=== PATIENT | male | born 1965 | race Caucasian/White ===

== ENCOUNTER 2016-12-05 22:37 | Observation (INO) | payer OTHER ==
[2016-12-05 22:40] VITALS: BP 127/93; PULSE 88; RESP 16; TEMP 97.7; O2SAT 96
--- NOTE | 2016-12-05 23:56 | RADRPT ---
EXAM DATE/TIME: 12/05/2016 23:25 [facility] COMPARISON: No previous studies available for comparison. INDICATIONS : Cough. MEDICAL HISTORY : None. SURGICAL HISTORY : None. ENCOUNTER: Initial ACUITY: 2 weeks PAIN SCORE: 0/10 LOCATION: Bilateral chest FINDINGS: A single view of the chest demonstrates the lungs to be symmetrically aerated without evidence of mas s, infiltrate or effusion. The cardiomediastinal contours are unremarkable. Osseous structures are intact. CONCLUSION: No acute disease. Alireza Campbell Jr., MD on December 05, 2016 at 23:54 Board Certified Radiologist. This report was verified electronically.
[2016-12-06] VITALS (10 sets, daily range): BP systolic 118–130; BP diastolic 59–84; PULSE 76–95; RESP 18–22; TEMP 97.6–98.7; O2SAT 93–96
[2016-12-06 00:03] LABS: AUTOMATED NEUTROPHIL # 5.5 TH/MM3 (1.8-7.7); BASOPHIL # 0.2 TH/MM3 (0-0.2); BASOPHIL % 1.3 % (0.0-2.0); EOSINOPHIL # 0.7 TH/MM3 (0-0.4); EOSINOPHIL % 5.6 % (0.0-4.0); HEMATOCRIT 41.8 % (39.0-51.0); LYMPH % 42.4 % (9.0-44.0); LYMPHOCYTE # 5.4 TH/MM3 (1.0-4.8); MEAN CELL VOLUME 84.4 FL (80.0-100.0); MEAN CORPUSCULAR HEMOGLOBIN 29.7 PG (27.0-34.0); MEAN CORPUSCULAR HGB CONC 35.2 % (32.0-36.0); MONO % 7.9 % (0.0-8.0); NEUT % 42.8 % (16.0-70.0); PLATELET COUNT 277 TH/MM3 (150-450); RED BLOOD COUNT 4.95 MIL/MM3 (4.50-5.90); RED CELL DISTRIBUTION WIDTH 13.2 % (11.6-17.2); WHITE BLOOD COUNT 12.7 TH/MM3 (4.0-11.0)
[2016-12-06 00:09] LABS: HEMO FLAGS AUTO DIFF
[2016-12-06] MEDS ORDERED: methylPREDNISolone SOD SUCC 125 MG/2 ML VIAL IVP ONE (00:15)
[2016-12-06] MEDS: RESP: ALBUTEROL 2.5 MG/IPRATROPIUM 0.5 MG NEB (SCH) INH ×2 (00:15→00:30)
[2016-12-06] MEDS ORDERED: LEVOFLOXACIN 750 MG PREMIX INJ 150 ML IV ONE (00:15)
[2016-12-06] MEDS ORDERED: SODIUM CHLOR 0.9% 1000 ML INJ 1,000 ML IV ONE (00:15)
[2016-12-06 00:21] LABS: APTT (PATIENT) 26.2 SEC (24.3-30.1); PROTHROMBIN TIME - PATIENT 10.9 SEC (9.8-11.6)
[2016-12-06 00:28] LABS: ALT (GPT) 25 U/L (12-78); ANION GAP 8 MEQ/L (5-15); AST (GOT) 14 U/L (15-37); BICARBONATE 29.3 MEQ/L (21.0-32.0); BLOOD UREA NITROGEN 6 MG/DL (7-18); CHLORIDE 106 MEQ/L (98-107); GLOMERULAR FILTRATION RATE 105 ML/MIN (>89); MAGNESIUM 2.5 MG/DL (1.5-2.5); POTASSIUM 3.6 MEQ/L (3.5-5.1); SODIUM (NA) 143 MEQ/L (136-145)
[2016-12-06 00:31] LABS: ALKALINE PHOSPHATASE 93 U/L (45-117); CREATINE KINASE 145 U/L (39-308); TOTAL BILIRUBIN ADULT 0.4 MG/DL (0.2-1.0)
[2016-12-06 00:44] LABS: CKMB 0.9 NG/ML (0.5-3.6)
[2016-12-06 02:04] LABS: BANDS 3 % (0-6); BASOPHILS 1 % (0-2); EOSINOPHILS 8 % (0-4); NEUTROPHIL # MANUAL DIFF 5.5 TH/MM3 (1.8-7.7); PLATELET ESTIMATE SMEAR NORMAL (NORMAL); PLATELET MORPHOLOGY NORMAL (NORMAL); POLYS (SEG NEUTROPHILS) 40 % (16-70); SCAN/DIFF FINAL DIFF MANUAL; WBC DIFF SAMPLE 100
--- NOTE | 2016-12-06 02:13 | PD ---
HPI Chief Complaint: Syncope/Near-Syncope Time Seen by Provider: 23:17 Travel History International Travel<30 days: No Contact w/Intl Traveler<30days: No Traveled to known affect area: No History of Present Illness HPI The patient is a 51 year old male who presents to the [facility] emergency department with a history of syncopal event 3 today. He reports that it occurs when he is coughing back to back. He reports that over the last month he has had an intractable cough after having flulike symptoms that began on November 13. The patient reports that the cough is occasionally productive of clear to green sputum. He denies ever having respiratory problems in the past. He denies smoking. He reports that he has chest tightness with the coughing. He also reports having a burning in his throat. He reports that the congestion that he had previously and has had has resolved. Review of systems, the patient reports that intermittently his stool has been loose. He denies having any nausea or vomiting. The patient denies having any known fevers, neck pain, abdominal pain, urinary symptoms, or other neurologic symptoms. [facility] Past Medical History Narrative Medical The patient's past medical history is significant for none. Medical History: Denies Significant Hx Diminished Hearing: No Tetanus Vaccination: Unknown Influenza Vaccination: No Past Surgical History Narrative Surgical The patient's past surgical history is reportedly none. Surgical History: No Previous Surgery Social History Alcohol Use: Yes (OCC) Tobacco Use: No Substance Use: No Allergies-Medications (Allergen,Severity, Reaction): Coded Allergies: No Known Allergies (Unverified , 12/05/16) Reported Meds & Prescriptions Reported Meds & Active Scripts Active No Active Prescriptions or Reported Medications Review of Systems Except as stated in HPI: all other systems reviewed are Neg General / Constitutional: No: Fever Eyes: No: Visual changes HENT: No: Headaches Cardiovascular: Positive: Chest Pain or Discomfort (chest tightness), Syncope, Dyspnea on exertion Respiratory: Positive: Cough, No: Shortness of Breath Gastrointestinal: No: Nausea, Vomiting, Diarrhea, Abdominal Pain Genitourinary: No: Dysuria Musculoskeletal: No: Pain Skin: No Rash Neurologic: No: Weakness Psychiatric: No: Depression Endocrine: No: Polydipsia Hematologic/Lymphatic: No: Easy Bruising Physical Exam Narrative General: The patient is a well-developed well-nourished male in no acute distress. Head and Neck exam: Head is normocephalic atraumatic. Eyes: EOMI, pupils are equal round and reactive to light. Nose: Midline septum with pink mucous membranes Mouth: Dentition unremarkable. Moist mucus membranes. Posterior oropharynx is erythematous with tonsillar hypertrophy, no exudates. Uvula midline. Airway patent. Neck: No palpable lymphadenopathy. No nuchal rigidity. No thyromegaly. Cardiovascular: Regular rate and rhythm without murmurs, gallops, or rubs. Lungs: Clear to auscultation bilaterally. No wheezes, rhonchi, or rales. The patient has a frequent dry cough on examination. Abdomen: Soft, without tenderness to palpation in all 4 quadrants of the abdomen. No guarding, rebound, or rigidity. Normal bowel sounds are audible. No tenderness on palpation of McBurney's point. Negative Friedman's sign. Extremities: No clubbing, cyanosis, or edema. 2+ pulses in all 4 extremities. No calf tenderness on palpation. Back: No spinous process tenderness to palpation. No costovertebral angle tenderness to palpation. Neurologic Exam: Cranial nerves 2-12 were intact on exam. Strength is 5/5 in all 4 extremities. No sensory deficits noted. Skin Exam: No rash noted. Intact skin that is warm and dry. Data Data Last Documented VS Vital Signs Date Time Temp Pulse Resp B/P Pulse Ox O2 Delivery O2 Flow Rate FiO2 12/05/16 23:05 16 12/05/16 22:40 97.7 88 127/93 96 Orders Electrocardiogram (12/05/16 23:20) Complete Blood Count With Diff (12/05/16 23:20) Comprehensive Metabolic Panel (12/05/16 23:20) Creatine Kinase (Cpk) (12/05/16 23:20) Ckmb (Isoenzyme) Profile (12/05/16 23:20) Troponin I (12/05/16 23:20) B-Type Natriuretic Peptide (12/05/16 23:20) Prothrombin Time / Inr (Pt) (12/05/16 23:20) Act Partial Throm Time (Ptt) (12/05/16 23:20) Blood Culture (12/05/16 23:20) D-Dimer (12/05/16 23:20) Magnesium (Mg) (12/05/16 23:20) Chest, Single Ap (12/05/16 23:20) Iv Access Insert/Monitor (12/05/16 23:20) Ecg Monitoring (12/05/16 23:20) Oximetry (12/05/16 23:20) Lactic Acid Sepsis Protocol (12/05/16 23:20) Methylprednisolone So Succ Inj (Solumedr (12/06/16 00:15) Albuterol-Ipratropium Neb (Duoneb Neb) (12/06/16 00:15) Levofloxacin 750 Mg Premix Inj (Levaquin (12/06/16 00:15) Sodium Chlor 0.9% 1000 Ml Inj (Ns 1000 M (12/06/16 00:15) CKMB (12/05/16 23:45) CKMB% (12/05/16 23:45) Ct Pulmonary Angiogram (12/06/16 01:24) Admit Order (Ed Use Only) (12/06/16 02:06) Labs Laboratory Tests Test 12/05/16 23:45 White Blood Count 12.7 TH/MM3 Red Blood Count 4.95 MIL/MM3 Hemoglobin 14.7 GM/DL Hematocrit 41.8 % Mean Corpuscular Volume 84.4 FL Mean Corpuscular Hemoglobin 29.7 PG Mean Corpuscular Hemoglobin 35.2 % Concent Red Cell Distribution Width 13.2 % Platelet Count 277 TH/MM3 Mean Platelet Volume 9.3 FL Neutrophils (%) (Auto) 42.8 % Lymphocytes (%) (Auto) 42.4 % Monocytes (%) (Auto) 7.9 % Eosinophils (%) (Auto) 5.6 % Basophils (%) (Auto) 1.3 % Neutrophils # (Auto) 5.5 TH/MM3 Lymphocytes # (Auto) 5.4 TH/MM3 Monocytes # (Auto) 1.0 TH/MM3 Eosinophils # (Auto) 0.7 TH/MM3 Basophils # (Auto) 0.2 TH/MM3 CBC Comment AUTO DIFF Differential Total Cells 100 Counted Neutrophils % (Manual) 40 % Band Neutrophils % 3 % Lymphocytes % 42 % Monocytes % 6 % Eosinophils % 8 % Basophils % 1 % Neutrophils # (Manual) 5.5 TH/MM3 Differential Comment FINAL DIFF MANUAL Platelet Estimate NORMAL Platelet Morphology Comment NORMAL Prothrombin Time 10.9 SEC Prothromb Time International 1.0 RATIO Ratio Activated Partial 26.2 SEC Thromboplast Time D-Dimer Quantitative (PE/DVT) 0.65 MG/L FEU Sodium Level 143 MEQ/L Potassium Level 3.6 MEQ/L Chloride Level 106 MEQ/L Carbon Dioxide Level 29.3 MEQ/L Anion Gap 8 MEQ/L Blood Urea Nitrogen 6 MG/DL Creatinine 0.78 MG/DL Estimat Glomerular Filtration 105 ML/MIN Rate Random Glucose 89 MG/DL Lactic Acid Level 1.0 mmol/L Calcium Level 8.6 MG/DL Magnesium Level 2.5 MG/DL Total Bilirubin 0.4 MG/DL Aspartate Amino Transf 14 U/L (AST/SGOT) Alanine Aminotransferase 25 U/L (ALT/SGPT) Alkaline Phosphatase 93 U/L Total Creatine Kinase 145 U/L Creatine Kinase MB 0.9 NG/ML Troponin I LESS THAN 0.02 NG/ML B-Type Natriuretic Peptide 11 PG/ML Total Protein 6.9 GM/DL Albumin 3.6 GM/DL MDM Medical Decision Making Medical Screen Exam Complete: Yes Emergency Medical Condition: Yes Medical Record Reviewed: Yes Differential Diagnosis Cough induced hypoxia, versus pulmonary embolism, versus pneumonia, versus acute coronary syndrome, versus cardiac arrhythmia Narrative Course During the course of the patients emergency department visit, the patients history, examination, and differential diagnosis were reviewed with the patient. The patient had IV access obtained and blood work sent for analysis. The patient was placed on a desk monitor with oximetry and blood pressure monitoring. An EKG was done on arrival. The patient's EKG shows a sinus rhythm heart rate of 71, nonspecific T-wave abnormalities, no acute ST segment elevation, T waves inverted in lead 3. The patient was provided a DuoNeb 1, Solu-Medrol 60 mg IV, Levaquin 750 IV times one for bronchitis. The patients laboratory studies were reviewed and remarkable for a white count of 12.7, hemoglobin 14.7, platelets 277 with 40 neutrophils, 3 bands, 42 lymphocytes, 8 eosinophils, CMP is unremarkable, CPK 145, troponin I less than 0.02, BNP is 11, lactic acid is 1, PT PTT unremarkable, d-dimer is 0.65, therefore a CTA to rule out PE was ordered. Radiology studies were reviewed and remarkable for a chest x-ray that shows no acute infiltrate. CTA to rule out PE reveals no evidence of pulmonary embolism , mild cardiomegaly. The patient will be admitted to the hospital for continued evaluation and treatment of syncope. The patients results were discussed with the patient, including the plan of care. I explained that further testing and/ or monitoring is indicated based on the patients history, examination, and/ or laboratory findings. Therefore, I recommended admission for additional evaluation. The patient expressed understanding and was agreeable with this plan. The patient was admitted to the hospital in stable condition and [facility] Physician Communication Physician Communication The patient's case is discussed with Dr. Santiago who did agree to admit the patient for further evaluation and treatment at this time Diagnosis Primary Impression: Syncope Qualified Code: R55 - Syncope, unspecified syncope type Additional Impression: Bronchitis Admitting Information Admitting Physician Requests: Observation Scripts No Active Prescriptions or Reported Meds Kathleen Foster MD Dec 06, 2016 02:13
[2016-12-06] MEDS ORDERED: SODIUM CHLORIDE 0.9% FLUSH 10 ML FLUSH IV FLUSH PRN (02:15)
[2016-12-06] MEDS ORDERED: NALOXONE HCL 0.4 MG/ML AMP IV PRN (02:15)
[2016-12-06] MEDS ORDERED: IOHEXOL 350 MG/ML 10 ML VIAL (for RAD DIAG) IV ONE (02:42)
--- NOTE | 2016-12-06 02:57 | RADRPT ---
EXAM DATE/TIME: 12/06/2016 02:39 [facility] COMPARISON: No previous studies available for comparison. INDICATIONS : Cough for three weeks, near syncopal episodes. Elevated D-Dimer. IV CONTRAST: 70 cc Omnipaque 350 (iohexol) IV RADIATION DOSE: 23.38 CTDIvol (mGy) MEDICAL HISTORY : None SURGICAL HISTORY : None. ENCOUNTER: Initial ACUITY: 3 weeks PAIN SCALE: 5/10 LOCATION: Left chest Patient was premedicated for underlying contrast media allergy. TECHNIQUE: Volumetric scanning of the chest was performed using a pulmonary embolism protocol MIP images were re constructed. Using automated exposure control and adjustment of the mA and/or kV according to patien t size, radiation dose was kept as low as reasonably achievable to obtain optimal diagnostic quality images. FINDINGS: Breathing motion artifact degrades the exam. PULMONARY ARTERIES: No filling defects are seen in the pulmonary arteries through the segmental level. LUNGS: There is no consolidation or pneumothorax . No concerning pulmonary nodule is visualized. PLEURAE: There is no pleural thickening or pleural effusion. MEDIASTINUM: Mild cardiomegaly. There is good visualization of the great vessels of the middle mediastinum. No ev idence of mediastinal or hilar adenopathy/mass. MUSCULOSKELETAL: Within normal limits for patient age. MISCELLANEOUS: The visualized upper abdominal organs demonstrate no acute abnormality. CONCLUSION: 1. No pulmonary emboli. 2. Mild cardiomegaly. Alireza Campbell Jr., MD on December 06, 2016 at 2:54 Board Certified Radiologist. This report was verified electronically.
[2016-12-06] MEDS: SODIUM CHLORIDE 0.9% FLUSH 10 ML FLUSH IV FLUSH SCH ×2 (09:00→21:07)
[2016-12-06 09:10] LABS: CREATINE KINASE 130 U/L (39-308)
--- NOTE | 2016-12-06 09:43 | HHI.HP ---
[facility] No Primary Care Physician Admission Diagnosis Syncope, bronchitis Diagnoses: Chief Complaint: cough, near syncope Travel History International Travel<30 Days: No Contact w/Intl Traveler <30 Da: No Traveled to Known Affected Are: No History of Present Illness 51-year-old male with no significant past medical history presents with a 3 week history of cough and 1 day history of near syncope. The patient states he' s had 3 weeks of "flu-like" symptoms. Then 2 weeks ago he developed intractable cough with occasional green mucus production. He's been feeling more fatigued and weak recently. Then yesterday he would get into a coughing fit, felt lightheaded and short of breath, then lower himself to the ground but did not lose consciousness. He did feel feverish 3 weeks ago when his flulike symptoms started, but denies any recent fevers or chills. Denies any chest pain, abdominal pain, nausea/vomiting. Since his arrival, CT-PA unremarkable, he was given IV Solumedrol, Duonebs, and Levaquin. He currently feels better, cough improving with minimal clear sputum, and no fevers/chills. Review of Systems Except as stated in HPI: all other systems reviewed are Neg Past Family Social History Past Medical History Denies any significant past medical history Past Surgical History Colonoscopy 2 years ago reportedly unremarkable Reported Medications Denies taking any medications on a regular basis Allergies: Coded Allergies: No Known Allergies (Unverified , 12/05/16) Active Ordered Medications Current Medications Medications (Trade) Dose Ordered Sig/Kacie Route Start Time Stop Time Status Last Admin (NS Flush) 2 ml UNSCH PRN IV FLUSH 12/06/16 02:15 (NS Flush) 2 ml BID IV FLUSH 12/06/16 09:00 (Narcan Inj) 0.4 mg UNSCH PRN IV 12/06/16 02:15 Family History Grandfather with heart disease Brother with heart disease, started in his 30s Father with lung cancer, smoker Mother with ovarian cancer Social History Denies tobacco use. Occasional social alcohol use Denies illicit drug use Physical Exam Vital Signs Vital Signs Date Time Temp Pulse Resp B/P Pulse Ox O2 Delivery O2 Flow Rate FiO2 12/06/16 07:06 97.6 87 18 122/70 94 12/06/16 04:51 92 12/06/16 04:20 98.0 90 20 129/74 95 12/06/16 03:23 90 20 118/74 96 Room Air 12/05/16 23:05 16 12/05/16 22:40 97.7 88 16 127/93 96 Physical Exam GENERAL: Well-developed, well-nourished middle aged male patient in NAD. SKIN: Warm and dry. HEAD: Atraumatic. Normocephalic. EYES: Pupils equal and round. No scleral icterus. No injection or drainage. ENT: No nasal bleeding or discharge. Mucous membranes pink and moist. NECK: Trachea midline. CARDIOVASCULAR: Regular rate and rhythm. No murmur appreciated. RESPIRATORY: No accessory muscle use. Decreased breath sounds at bilateral bases , otherwise clear to auscultation. Breath sounds equal bilaterally. GASTROINTESTINAL: Abdomen soft, non-tender, nondistended. Hepatic and splenic margins not palpable. MUSCULOSKELETAL: Extremities without clubbing, cyanosis, or edema. No obvious deformities. NEUROLOGICAL: Awake and alert. No obvious cranial nerve deficits. Motor grossly within normal limits. 5/5 muscle strength in the arms and legs. Normal speech. PSYCHIATRIC: Appropriate mood and affect; insight and judgment normal. Laboratory Laboratory Tests Test 12/05/16 12/06/16 23:45 05:50 White Blood Count 12.7 Red Blood Count 4.95 Hemoglobin 14.7 Hematocrit 41.8 Mean Corpuscular Volume 84.4 Mean Corpuscular Hemoglobin 29.7 Mean Corpuscular Hemoglobin 35.2 Concent Red Cell Distribution Width 13.2 Platelet Count 277 Mean Platelet Volume 9.3 Neutrophils (%) (Auto) 42.8 Lymphocytes (%) (Auto) 42.4 Monocytes (%) (Auto) 7.9 Eosinophils (%) (Auto) 5.6 Basophils (%) (Auto) 1.3 Neutrophils # (Auto) 5.5 Lymphocytes # (Auto) 5.4 Monocytes # (Auto) 1.0 Eosinophils # (Auto) 0.7 Basophils # (Auto) 0.2 CBC Comment AUTO DIFF Differential Total Cells 100 Counted Neutrophils % (Manual) 40 Band Neutrophils % 3 Lymphocytes % 42 Monocytes % 6 Eosinophils % 8 Basophils % 1 Neutrophils # (Manual) 5.5 Differential Comment FINAL DIFF MANUAL Platelet Estimate NORMAL Platelet Morphology Comment NORMAL Prothrombin Time 10.9 Prothromb Time International 1.0 Ratio Activated Partial 26.2 Thromboplast Time D-Dimer Quantitative (PE/DVT) 0.65 Sodium Level 143 Potassium Level 3.6 Chloride Level 106 Carbon Dioxide Level 29.3 Anion Gap 8 Blood Urea Nitrogen 6 Creatinine 0.78 Estimat Glomerular Filtration 105 Rate Random Glucose 89 Lactic Acid Level 1.0 Calcium Level 8.6 Magnesium Level 2.5 Total Bilirubin 0.4 Aspartate Amino Transf 14 (AST/SGOT) Alanine Aminotransferase 25 (ALT/SGPT) Alkaline Phosphatase 93 Total Creatine Kinase 145 130 Creatine Kinase MB 0.9 Troponin I LESS THAN 0.02 LESS THAN 0.02 B-Type Natriuretic Peptide 11 Total Protein 6.9 Albumin 3.6 Date/Time Procedure Status Source Growth 12/05/16 23:45 Aerobic Blood Culture Received Blood Peripheral Pending 12/05/16 23:45 Anaerobic Blood Culture Received Blood Peripheral Pending Result Diagram: 12/05/16 2345 12/05/[address] Angiography 12/06/16 0124 Signed Impressions: Service Date/Time: Tuesday, December 06, 2016 02:39 - CONCLUSION: 1. No pulmonary emboli. 2. Mild cardiomegaly. Alireza Campbell Jr., MD Chest X-Ray 12/05/16 4047 Signed Impressions: Service Date/Time: Monday, December 05, 2016 23:25 - CONCLUSION: No acute disease. Alireza Campbell Jr., MD Assessment and Plan Problem List: (1) Bronchitis ICD Code: J40 Status: Acute (2) Syncope ICD Code: R55 Status: Acute Assessment and Plan 51-year-old male with no significant past medical history presents with a 3 week history of cough and 1 day history of near syncope. Acute Bronchitis: symptoms [id number] after viral illness. Possible early pneumonia. CXR and CT-PA images reviewed, unremarkable, negative for PE. WBC 12.7K, afebrile. -Continue Prednisone 20mg bid, Levaquin 750mg daily, and Fluticasone nasal spray bid. -Duonebs prn. -Blood cultures with NGTD -Patient with hx of second hand smoke exposure, consider outpatient PFTs after discharge -likely discharge tomorrow am Near Syncope: likely secondary to intractable coughing. -Carotid U/S unremarkable -ACS ruled out with negative cardiac enzymes x3 -EKG reviewed by me, no ischemic changes -Check echocardiogram DVT Prophylaxis: teds/SCDs Written by Alesia Cary, acting as scribe for Dr. Espana on 12/06/16 at 09:43. All or portions of this note were transcribed by scribe CARINA Gregorio . I , Dr. Camron Espana personally performed the history, physical exam, and medical decision making; and confirmed the accuracy of the information in the transcribed note. Authenticated by Dr. Camron Espana on 12/07/16 at 00:01. Discussed Condition With Patient, RN Problem Qualifiers (1) Syncope: Qualified Code: R55 - Syncope, unspecified syncope type Alesia Cary PA-C Dec 06, 2016 09:43 Leonides Espana DO Dec 07, 2016 00:01
--- NOTE | 2016-12-06 09:52 | RADRPT ---
EXAM DATE/TIME: 12/06/2016 07:56 [facility] COMPARISON: No previous studies available for comparison. INDICATIONS : Syncope. MEDICAL HISTORY : Cough. Bronchitis. Syncope. SURGICAL HISTORY : None. ENCOUNTER: Initial ACUITY: 1 day PAIN SCORE: 2/10 LOCATION: Bilateral neck PEAK SYSTOLIC VELOCITIES (cm/sec): ICA/CCA RATIO: Right: 0.9 Left: 0.8 ICA: Right: 98 Left: 98 CCA: Right: 111 Left: 125 ECA: Right: 125 Left: 118 VERTEBRAL: Right: Not visualized. absent Left: 45 antegrade Elevated flow velocities and ICA/CCA ratios have been found to correlate with increased degrees of vessel stenosis, calculated as percentage of diameter relative to a normal segment of distal ICA/CCA FINDINGS: RIGHT CAROTID: No significant stenosis is visualized. The waveforms are within normal limits. LEFT CAROTID: No significant stenosis is visualized. The waveforms are within normal limits. VERTEBRAL ARTERIES: Right vertebral flow is not identified MISCELLANEOUS: None. CONCLUSION: No evidence of flow-limiting carotid stenosis. Zeeshan Sharif MD on December 06, 2016 at 9:48 Board Certified Radiologist. This report was verified electronically.
[2016-12-06] MEDS: predniSONE 10 MG TAB PO SCH ×2 (10:11→21:07)
--- NOTE | 2016-12-06 10:44 | EKG ---
Date Performed: 12/05/2016 Time Performed: 23:30:30 PTAGE: 51 years EKG: Sinus rhythm NONSPECIFIC T-WAVE ABNORMALITY BORDERLINE ECG NO PREVIOUS TRACING DOCTOR: Dara Chanel Interpretating Date/Time 12/06/2016 10:37:21
--- NOTE | 2016-12-06 10:45 | EKG ---
Date Performed: 12/06/2016 Time Performed: 06:08:16 PTAGE: 51 years EKG: Sinus rhythm NONSPECIFIC T-WAVE ABNORMALITY BORDERLINE ECG Compared to prior tracing no significant change PREVIOUS TRACING DOCTOR: Dara Chanel Interpretating Date/Time 12/06/2016 10:37:33
[2016-12-06] MEDS: guaiFENesin/CODEINE SYRUP 200 MG/20 MG/10 ML CUP PO PRN ×2 (10:52→21:10)
[2016-12-06] MEDS: FLUTICASONE PROPIONATE 50 MCG/ACT 16 GM NASAL SPRAY EACH NARE SCH (10:54)
[2016-12-06 12:50] LABS: CREATINE KINASE 132 U/L (39-308)
--- NOTE | 2016-12-06 16:30 | EC ---
Study Study Date:12/06/2016 STUDY CONCLUSIONS SUMMARY - Left ventricle: The cavity size was mildly dilated. Wall thickness was normal. Systolic function was normal. The estimated ejection fraction was in the range of 60% to 65%. Wall motion was normal; there were no regional wall motion abnormalities. - Tricuspid valve: Mild regurgitation. If LV function is below 40, please consider prescribing an ACEI or ARB or document rationale for non-use. PROCEDURE DATA STUDY STATUS: Elective. Procedure: Transthoracic echocardiography. Image quality was good. Scanning was performed from the parasternal, apical, and subcostal acoustic windows. Study completion: The patient tolerated the procedure well. Transthoracic echocardiography. M-mode, complete 2D, complete spectral Doppler, and color Doppler. Patient status: Inpatient. CARDIAC ANATOMY LEFT VENTRICLE: The cavity size was mildly dilated. Wall thickness was normal. Systolic function was normal. The estimated ejection fraction was in the range of 60% to 65%. Wall motion was normal; there were no regional wall motion abnormalities. AORTIC VALVE: Trileaflet; normal thickness leaflets. Doppler: Transvalvular velocity was within the normal range. There was no stenosis. No regurgitation. Mean gradient: 11mm Hg (S). Peak gradient: 21mm Hg (S). AORTA: Aortic root: The aortic root was normal in size. MITRAL VALVE: Structurally normal valve. Doppler: Transvalvular velocity was within the normal range. There was no evidence for stenosis. No regurgitation. Peak gradient: 3mm Hg (D). LEFT ATRIUM: The atrium was normal in size. RIGHT VENTRICLE: The cavity size was normal. Wall thickness was normal. PULMONIC VALVE: Doppler: Transvalvular velocity was within the normal range. There was no evidence for stenosis. No regurgitation. TRICUSPID VALVE: Structurally normal valve. Doppler: Transvalvular velocity was within the normal range. Mild regurgitation. PULMONARY ARTERY: The main pulmonary artery was normal-sized. Systolic pressure was within the normal range. RIGHT ATRIUM: The atrium was normal in size. PERICARDIUM: There was no pericardial effusion. SYSTEMIC VEINS: Inferior vena cava: The vessel was normal in size. BASIC MEASUREMENTS ADULT Normal Left ventricle LV internal dimension, ED, chordal level, *61.7 mm 43-52 PLAX LV internal dimension, ES, chordal level, *42.9 mm 23-38 PLAX Fractional shortening, chordal level, PLAX 30 % >29 LV posterior wall thickness, ED 7.47 mm IVS/LVPW ratio, ED 0.98 <1.3 Ventricular septum Septal thickness, ED 7.32 mm Left atrium Anterior-posterior dimension 26 mm Right ventricle RV internal dimension, ED, PLAX 22.3 mm 19-38 DOPPLER MEASUREMENTS ADULT Normal Aortic valve Peak velocity, S 230 cm/s Mean velocity, S 146 cm/s VTI, S 45.6 cm Mean gradient, S 11 mm Hg Peak gradient, S 21 mm Hg Mitral valve Peak E-wave velocity 84.5 cm/s Peak A-wave velocity 108 cm/s Peak gradient, D 3 mm Hg Peak E/A ratio 0.8 Tricuspid valve Regurgitant peak velocity 281 cm/s Peak RV-RA gradient, S 32 mm Hg Maximal regurgitant velocity 281 cm/s LEGEND: Mean values are shown as u=mean value. Asterisk (*) cuellar values outside specified normal range. Prepared and signed by Papito Sanders [id number]
[2016-12-06] MEDS ORDERED: LEVOFLOXACIN 750 MG TAB PO SCH (21:00)
[2016-12-07 03:07] VITALS: BP 112/76; PULSE 86; RESP 22; TEMP 98.4; O2SAT 92; O2SAT 93
[2016-12-07] MEDS: RESP: ALBUTEROL 2.5 MG/IPRATROPIUM 0.5 MG NEB (PRN) NEB ×2 (04:28→07:39)
[2016-12-07] MEDS: guaiFENesin/CODEINE SYRUP 200 MG/20 MG/10 ML CUP PO PRN (07:41)
[2016-12-07] MEDS: predniSONE 10 MG TAB PO SCH (07:41)
[2016-12-07] MEDS: FLUTICASONE PROPIONATE 50 MCG/ACT 16 GM NASAL SPRAY EACH NARE SCH (07:42)
[2016-12-07] MEDS: SODIUM CHLORIDE 0.9% FLUSH 10 ML FLUSH IV FLUSH SCH (07:42)
[2016-12-07 07:45] VITALS: O2SAT 95
[2016-12-07 07:48] VITALS: BP 112/67; PULSE 88; RESP 22; TEMP 97.5; O2SAT 94
[2016-12-07 08:00] VITALS: PULSE 85
[2016-12-07] MEDS ORDERED: GUAI100S5 PO (08:20)
[2016-12-07] MEDS ORDERED: LEVA750T PO (08:28)
[2016-12-07] MEDS ORDERED: ALBUAER3 INH (08:28)
[2016-12-07] MEDS ORDERED: PRED10 PO (08:28)
[2016-12-07] MEDS ORDERED: FLUT50SP EACH NARE (08:28)
--- NOTE | 2016-12-07 08:31 | HHI.PR ---
Subjective Remarks Follow-up for bronchitis. The patient is doing better today. He states his cough is improved. He continues to cough up clear phlegm. He does report a lot of secondhand smoke exposure throughout his life, never smoker. He recently switched jobs and plans to have insurance soon and plans to establish with a PCP whenever he does. Objective Vitals Vital Signs Date Time Temp Pulse Resp B/P Pulse Ox O2 Delivery O2 Flow Rate FiO2 12/07/16 07:48 97.5 88 22 112/67 94 12/07/16 03:07 98.4 86 22 112/76 93 12/06/16 23:40 98.2 88 22 130/84 93 12/06/16 22:39 76 12/06/16 19:13 98.7 95 18 124/66 96 12/06/16 16:08 97.9 90 18 119/73 94 12/06/16 11:09 98.0 87 20 125/59 94 I/O 12/06/16 12/06/16 12/06/16 12/07/16 12/07/16 12/07/16 07:00 15:00 23:00 07:00 15:00 23:00 Intake Total 600 ml Balance 600 ml Intake Oral 600 ml # Voids 1 3 2 Result Diagram: 12/05/16 2345 12/05/16 [address] Angiography 12/06/16 0124 Signed Impressions: Service Date/Time: Tuesday, December 06, 2016 02:39 - CONCLUSION: 1. No pulmonary emboli. 2. Mild cardiomegaly. Alireza Campbell Jr., MD Carotid Artery Ultrasound 12/06/16 0000 Signed Impressions: Service Date/Time: Tuesday, December 06, 2016 07:56 - CONCLUSION: No evidence of flow-limiting carotid stenosis. Zeeshan Sharif MD Chest X-Ray 12/05/16 2320 Signed Impressions: Service Date/Time: Monday, December 05, 2016 23:25 - CONCLUSION: No acute disease. Alireza Campbell Jr., MD Objective Remarks GENERAL: Well-developed well-nourished. In no acute distress. SKIN: Warm and dry. No lesions noted. HEENT: Normocephalic. Pupils equal and round. Mucous membranes pink and moist. CARDIOVASCULAR: Regular rate and rhythm. No murmur appreciated. RESPIRATORY: No accessory muscle use. Clear to auscultation. Decreased breath sounds. GASTROINTESTINAL: Abdomen soft, non-tender, nondistended. Bowel sounds x4. MUSCULOSKELETAL: No obvious deformities. No clubbing or cyanosis. No edema. NEUROLOGICAL: Awake and alert. No focal neurological deficits. Moves upper and lower extremities spontaneously. Normal speech. PSYCHIATRIC: Appropriate mood and affect; insight and judgment normal. A/P Problem List: (1) Bronchitis ICD Code: J40 Status: Acute (2) Syncope ICD Code: R55 Status: Acute Assessment and Plan 51-year-old male with no significant past medical history presents with a 3 week history of cough and 1 day history of near syncope. Acute Bronchitis: symptoms [id number] after viral illness. Possible early pneumonia. CXR and CT-PA reviewed, unremarkable, negative for PE. WBC 12.7K, afebrile. -Continue Prednisone 20mg bid, Levaquin 750mg daily, and Fluticasone nasal spray bid. -Duonebs prn. -Blood cultures with NGTD -Patient with hx of second hand smoke exposure, consider outpatient PFTs after discharge, discussed with patient Near Syncope: likely secondary to intractable coughing. -Carotid U/S unremarkable -ACS ruled out with negative cardiac enzymes x3 -EKG with no ischemic changes -Echocardiogram with normal systolic function and EF 60%. DVT Prophylaxis: teds/SCDs Written by Pool Barrientos, acting as scribe for Dr. Espana on 12/07/16 at 08:30. All or portions of this note were transcribed by scribe CARINA Lemus. I, Dr. Camron Espana personally performed the history, physical exam, and medical decision making; and confirmed the accuracy of the information in the transcribed note. Authenticated by Dr. Camron Espana on 12/07/16 at 23:18. Discharge Planning Discharge patient to home Condition on discharge: Improved Regular Diet as tolerated Regular activity Rx written: Albuterol MDI, fluticasone nasal spray, Robitussin with codeine, Levaquin, prednisone Follow-up with primary care physician Problem Qualifiers (1) Syncope: Qualified Code: R55 - Syncope, unspecified syncope type Pool Barrientos Dec 07, 2016 08:31 Leonides Espana DO Dec 07, 2016 23:18
--- NOTE | 2016-12-07 11:04 | EKG ---
Date Performed: 12/06/2016 Time Performed: 12:16:03 PTAGE: 51 years EKG: Sinus rhythm POSSIBLE LATERAL MYOCARDIAL INFARCTION BORDERLINE ECG PREVIOUS TRACING : 12/06/2016 06.08 DOCTOR: Vidal Rodriguez Interpretating Date/Time 12/07/2016 11:02:48
== END 2016-12-07 17:37 | disposition home or self-care (01) ==
LOC: NEPC 22:37 → NEDA 12-06 02:08 → NEPGCP 12-06 04:13
PROVIDERS: ADMIT Hospitalist; ATTEND Hospitalist
DX: R55 Syncope and collapse (principal); J20.9 Acute bronchitis, unspecified; Z77.22 Contact with and (suspected) exposure to environmental tobacco smoke (acute) (chronic)
CPT/HCPCS: 71010; 71275; 80053; 82550; 82552; 83605; 83735; 83880; 84484; 85007; 85027; 85379; 85610; 85730; 87040; 93005; 93306; 93880; 94640; 94664; 96365; 96375; 99285; G0378; J1956; J2930; J7030; J7512; Q9967